=== PATIENT | female | born 1970 | race Caucasian/White ===

== ENCOUNTER 2016-06-28 16:33 | Emergency (ER) | payer MEDICAID, MEDICARE ==
[2016-06-28 16:39] VITALS: BP 152/79; PULSE 80; TEMP 98.2; BMI 35.5
[2016-06-28] MEDS ORDERED: OXYCODONE HCL 5 MG TABLET PO ONE (16:44)
[2016-06-28] MEDS ORDERED: PREDNISONE 20 MG TAB PO ONE (16:44)
[2016-06-28] MEDS ORDERED: DIAZEPAM 5 MG TAB PO ONE (16:44)
--- NOTE | 2016-06-28 16:46 | EDPRACDOC ---
- General Information Chief Complaint: Back Pain Stated Complaint: BACK & HIP PAIN NO RECENT INJURY Time Seen by Provider: 06/28/16 16:38 Information Source: Patient Mode Of Arrival: Car Home Medications: Home Medications Albuterol Sulfate [Proair Hfa] 2 puff INH BID PRN 04/20/12 Atenolol [Tenormin] 50 mg PO DAILY 04/20/12 Escitalopram Oxalate [Lexapro] 20 mg PO DAILY 04/20/12 Insulin Novolog 70/30 MIX [NOVOLOG 70-30 Mix] 15 units SQ .SLIDING SCALE PRN 07/26 Amitriptyline HCl [Elavil] 75 mg PO HS 02/16/13 Fluticasone/Salmeterol [Advair Hfa 45-21 Mcg Inhaler] 2 puff INH DAILY PRN 02/16 TOPIRAMATE (Anticonvulsant) [Topamax] 100 mg PO HS 02/16/13 Estradiol [Estrace] 1 mg PO DAILY 09/20/13 Lorazepam [Ativan] 1 mg PO BID 09/20/13 MetFORMIN (Immediate Release) [Glucophage Immediate Release] 1,000 mg PO BID(KEVIN ) 09/20/13 Omeprazole [Prilosec] 20 mg PO BID 09/20/13 Progesterone,Micronized [Progesterone] 200 mg PO DAILY 09/20/13 Ramipril [Altace] 1.25 mg PO DAILY 09/20/13 Ondansetron HCl [Zofran] 4 mg PO Q6H PRN #20 tab 12/17/13 Guaifenesin [Mucinex] 600 mg PO BID #30 tablet.sa 03/07/14 Prednisone [Deltasone, Orasone] 20 mg PO BID #14 tab 03/07/14 Diazepam [Valium] 5 mg PO TID #15 tablet 06/28/16 Oxycodone Immediate Release [Oxycodone Immediate Release (OxyIR)] 5 mg PO Q6H PRN #20 tab 06/28/16 Prednisone [Deltasone, Orasone] 20 mg PO BID #12 tab 06/28/16 Allergies/Adverse Reactions: Allergies Allergy/AdvReac Type Severity Reaction Status Date / Time cephalexin monohydrate Allergy Mild RASH Verified 03/06/14 22:31 [From Keflex] hydrocodone bitartrate Allergy Mild RASH/SHOB Verified 03/06/14 22:31 [From Vicodin] ketorolac tromethamine Allergy Mild CRAMPS Verified 03/06/14 22:31 [From Toradol] rizatriptan benzoate Allergy Anaphylaxis Verified 03/06/14 22:31 [From Maxalt] * sumatriptan [From Imitrex] Allergy See Verified 03/06/14 22:31 Comments sumatriptan succinate Allergy See Verified 03/06/14 22:31 [From Imitrex] Comments - History of Present Illness Onset: LAST WEEK HPI: PT PRESENTS STATING SHE HAS CHRONIC BACK PAIN THAT FLAIRS AT TIMES. STATES SHE SLIPPED IN THE MUD LAST WEEK AND HER LEFT LOWER LUMBAR BEGAN HURTING AGAIN WITH PAIN RADIATING DOWN INTO HER BUTTOCK AND THIGH. DENIES LOSS OF BOWEL OR BLADDER. Pain Location: Reports: Left, Lumbar Pain Radiates To: Reports: Thigh, Buttock Pain Caused By: Reports: Fall Circumstances: Reports: Fall Relevant History: Reports: Chronic back pain Currently ?: No Pain Severity: Reports: Moderate Pain Quality: Reports: Sharp, Stabbing Worsened By: Reports: Movement, Twisting, Walking Associated Signs and Symptoms: Reports: None ED Past Medical History - History Reviewed Yes Nurses notes reviewed and agree except as marked - Patient Medical History Neurological History: Reports: Cerebrovascular Accident, Seizures (2007) Cardiac History: Reports: Hypertension, Cardiac Catheterization (X3; ALL NEGATIVE), Hypercholesterolemia, Syncope (WHEN SHE GETS VERY HOT) Respiratory History: Reports: Asthma, COPD GI/ History: Reports: Gastroesophageal Reflux Psychological History: Reports: Depression, Anxiety, Bipolar Disorder Systemic History: Reports: Cancer (OVARIAN), Anemia, Diabetes Surgical History: Reports: Hysterectomy, Cardiac Catheterization (X3; ALL NEGATIVE), Tonsillectomy/Adnoidectomy, Other (MULT ORTHO) - Family Medical History Reports: Hypertension (PARENTS), Diabetes (PARENTS), Cardiac Disorders (FATHER) . Denies: Cancer, Stroke EDM Review of Systems - Review of Systems ROS Negative Except as Marked: Yes All systems reviewed and were negative except as marked - Physical Exam Constitutional: Alert Oriented to: Time, Person, Place Last recorded Vital Signs: Last Vital Signs Temp 98.2 F 06/28/16 16:37 Pulse 80 06/28/16 16:37 Resp 18 06/28/16 16:37 BP 152/79 06/28/16 16:37 Pulse Ox 97 06/28/16 16:37 Oxygen Pulse Oxygen Saturation 97 O2 Device Oxygen Flow Rate Fraction of Inspired Oxygen ( FIO2) - HEENT Head: Normal ( normocephalic) Eye Exam: Normal (PERRL, EOMI, Sclera white) Oropharynx: Normal (Pharynx:Moist without exudate,Gums-no swelling) Nose: No Symptoms Reported (septum midline) Neck: Normal (FROM, trachea at midline) - Respiratory/Cardiovascular Respiratory: Normal - CTA (BBS clear to auscultation without adventitious sounds ) Cardiovascular: Normal (RRR without murmur, gallop or rub) - GI Auscultation: Normal (NABS) Palpation: Normal (Soft,No rebound or guarding, non distended) Tenderness: Non tender Guerra's Sign: Negative Rectal Exam: Deferred - Musculoskeletal Back: Normal (Non-Tender) Extremities: Normal (Normal tone, Pulses 2+ No cyanosis or edema, FROM) - Integumentary Skin: Normal, Warm, Dry Lymphatics: Normal (no adenopathy) - Neurologic Memory Impaired: Normal Motor Function: Normal (Normal tone, Pulses 2+ No cyanosis or edema, FROM) Cranial Nerve: Normal (CN II-X11 intact sensation, strength 5/5) Cerebellar: Normal Mood Description: Normal Perception: Normal ED Back Exam - Neurologic Motor Deficit: None Reflexes: Normal - Musculoskeletal Cervical: Normal Thoracic: Normal Lumbar: Normal Midline: Normal Paraspinous: Tender Straight Leg Raise: Negative Pelvis: Normal - Differential Diagnosis Musculoskeletal pain Decision Time to Discharge: 16:46 - Departure Disposition: Home Condition: Stable Final Diagnosis: Accidental fall Sciatica Qualifiers: Laterality: left Qualified Code(s): M54.32 - Sciatica, left side Instructions: Back Exercises (ED), Sciatica (ED), Fall Prevention (ED) Education/Counseling Given To: Patient Education/Counseling Given Regarding: Diagnosis, Treatment, Prognosis, Follow Up Referrals: Balbir Franco MD [Staff Physician] - One Week Prescriptions: Diazepam [Valium] 5 mg PO TID #15 tablet Oxycodone Immediate Release [Oxycodone Immediate Release (OxyIR)] 5 mg PO Q6H PRN #20 tab PRN Reason: Pain Prednisone [Deltasone, Orasone] 20 mg PO BID #12 tab Additional Instructions: [id number] Return to the Emergency Department immediately for any numbness in your perineal area or genitalia, any bowel or bladder incontinence or retention (not related to constipation).
== END 2016-06-28 16:58 | disposition home or self-care (01) ==
LOC: EDMC 16:33
DX: M54.32 Sciatica, left side (principal)
CPT/HCPCS: 99283; A9270; J3490

== ENCOUNTER 2016-07-07 20:09 | Emergency (ER) | payer MEDICARE ==
[2016-07-07 20:10] VITALS: BMI 38.3
[2016-07-07 20:18] VITALS: TEMP 97.9
[2016-07-07 20:35] LABS: AUTOMATED BASOPHIL 0.6 % (0-2); AUTOMATED EOSINOPHIL 2.3 % (0-5); AUTOMATED LYMPH 32.9 % (17-44); AUTOMATED MONOCYTE 4.5 % (3-10); AUTOMATED NEUTROPHIL 59.7 % (45-76); MPV 11.8 fL (7.4-10.4)
[2016-07-07 20:42] LABS: LEUKOCYTES/URINE NEG (NEGATIVE); NITRITE/URINE NEG (NEGATIVE); RBC/URINE 0-2 (0-5); URINE OCCULT BLOOD NEG (NEG/TRACE); WBC/URINE 0-2 (0-5)
[2016-07-07 20:46] LABS: BLOOD UREA NITROGEN 8 MG/DL (7-17); CALCIUM 9.3 MG/DL (8.4-10.2); CALCULATED OSMOLALITY 274 MOs/Kg (270-290); CHLORIDE 109 mEq/L (98-107); GLUCOSE 121 MG/DL (70-99); SODIUM LEVEL 143 mEq/L (137-146); TOTAL PROTEIN 7.8 G/DL (6.3-8.2)
[2016-07-07] MEDS ORDERED: ONDANSETRON HCL 4 MG/2 ML VIAL IV ONE (20:50)
[2016-07-07] MEDS ORDERED: SODIUM CHLORIDE 0.9% 3 ML FLUSH FLUSH PRN (20:50)
[2016-07-07] MEDS ORDERED: NS 1,000 ML IV ONE ×2 (20:50)
--- NOTE | 2016-07-07 21:10 | EDPRACDOC ---
- General Information Chief Complaint: Nausea,Vomiting,Diarrhea Stated Complaint: PALIPATATIONS WITH HEADACHE Time Seen by Provider: 07/07/16 20:49 Information Source: Patient Mode Of Arrival: Car Home Medications: Home Medications Escitalopram Oxalate [Lexapro] 20 mg PO DAILY 04/20/12 TOPIRAMATE (Anticonvulsant) [Topamax] 100 mg PO BID 02/16/13 Estradiol [Estrace] 1 mg PO DAILY 09/20/13 MetFORMIN (Immediate Release) [Glucophage Immediate Release] 1,000 mg PO BID(KEVIN ) 09/20/13 Omeprazole [Prilosec] 20 mg PO BID 09/20/13 Dicyclomine HCl [Bentyl] 20 mg PO Q6H #30 tablet 07/07/16 Gabapentin 600 mg PO BID 07/07/16 Levothyroxine Sodium [Levothroid] 75 mcg PO DAILY 07/07/16 Metoprolol Succinate (XL) [Toprol Xl] 12.5 mg PO DAILY 07/07/16 Metronidazole [Flagyl] 500 mg PO TID #30 tab 07/07/16 Ondansetron [Zofran Odt] 4 mg PO Q6H #20 tab.rapdis 07/07/16 Oxycodone Immediate Release [Oxycodone Immediate Release (OxyIR)] 5 mg PO Q6H PRN #14 tab 07/07/16 Tramadol HCl [Ultram] 50 mg PO Q6H PRN 07/07/16 Allergies/Adverse Reactions: Allergies Allergy/AdvReac Type Severity Reaction Status Date / Time cephalexin monohydrate Allergy Mild RASH Verified 06/28/16 16:46 [From Keflex] hydrocodone bitartrate Allergy Mild RASH/SHOB Verified 06/28/16 16:46 [From Vicodin] ketorolac tromethamine Allergy Mild CRAMPS Verified 06/28/16 16:46 [From Toradol] rizatriptan benzoate Allergy Anaphylaxis Verified 06/28/16 16:46 [From Maxalt] * sumatriptan [From Imitrex] Allergy See Verified 06/28/16 16:46 Comments sumatriptan succinate Allergy See Verified 06/28/16 16:46 [From Imitrex] Comments - History of Present Illness Onset: one month HPI: PT PRESENTS TO ED WITH 3 WKS OF PREDOMINANTLY DIARRHEA WITH FEW EPISODES OF VOMITING STATES HAVING INTERMITTENT ABD CRAMPING WITH EPISODES OF DIARRHEA AND VOMITING. PT STATES HAS HAD CDIFF X 2 IN THE PAST AND FEELS SIMILAR TO BEGINNING OF THE SAME. Symptoms Occured: Reports: Spontaneous Duration: Reports: Since Onset Emesis: Reports: Bilious Recent: Reports: None Pain Quality: Reports: Cramping (INTERMITTENT) Pain Severity: Moderate (CRAMPING) Pain Location: Reports: Diffuse : No Associated Signs & Symptoms: Reports: Nausea, Vomiting, Diarrhea (PREDOMINANTLY DIARRHEA) Oral Intake: Normal Urinary Output: Normal ED Past Medical History - History Reviewed Yes Nurses notes reviewed and agree except as marked Travel Outside of [place] in the Last 3 Months?: No - Patient Medical History Neurological History: Reports: Cerebrovascular Accident, Seizures (2007) Cardiac History: Reports: Hypertension, Cardiac Catheterization (X3; ALL NEGATIVE), Hypercholesterolemia, Syncope (WHEN SHE GETS VERY HOT) Respiratory History: Reports: Asthma, COPD GI/ History: Reports: Gastroesophageal Reflux Psychological History: Reports: Depression, Anxiety, Bipolar Disorder Systemic History: Reports: Cancer (OVARIAN), Anemia, Diabetes Additional Past Medical History: CDIFF X 2 Surgical History: Reports: Cholecystectomy, Cardiac Catheterization (X3; ALL NEGATIVE), Tonsillectomy/Adnoidectomy, Other (MULT ORTHO). Denies: Hysterectomy - Family Medical History Reports: Hypertension (PARENTS), Diabetes (PARENTS), Cardiac Disorders (FATHER) . Denies: Cancer, Stroke - Social Medical History Smoking Status: Heavy tobacco smoker (5 or more cigarettes/day or daily pipe/ cigar) ETOH: None Substance Abuse: None Lives With: Spouse Lives In: Home EDM Review of Systems - Review of Systems ROS Negative Except as Marked: Yes All systems reviewed and were negative except as marked Constitutional: No Symptoms Reported. negative: Fever, Chills, Weakness, Fatigue, Loss of Appetite Eyes: No Symptoms Reported. negative: Redness, Blurred Vision, Double Vision, Discharge, Pain, Light Sensitive, Photophobia Ears: No Symptoms Reported. negative: Pain, Hearing Loss, Drainage, Ear Pulling Throat: No Symptoms Reported. negative: Pain, Swelling Nose: No Symptoms Reported. negative: Congestion, Bleeding, Discharge, Injection, Swelling, Deformity, Ecchymosis, Tender, Abrasion, Laceration Mouth: No Symptoms Reported. negative: Pain, Drooling Respiratory: No Symptoms Reported. negative: Cough, Brassy Cough, Barky Cough, Shortness of Breath, Wheezing, Hemoptysis Cardiovascular: No Symptoms Reported. negative: Chest Pain, Palpitations, Syncope, Edema, Orthopnea, PND, Skin Mottling, Cyanosis Gastrointestinal: Diarrhea, Nausea, Pain (INTERMITTENT CRAMPING), Vomiting. negative: Constipation, Formula Intolerance, Melena Genitourinary: No Symptoms Reported. negative: Dysuria, Hematuria, Frequency, Discharge, Bleeding, Testicular Pain, Neurological: No Symptoms Reported. negative: Headache, Dizziness, Seizure, Numbness, Weakness, Speech Difficulty, Gait Difficulty Musculoskeletal: No Symptoms Reported. negative: Neck, Chestwall, Ribs, Back, Shoulder, Arm, Elbow, Forearm, Wrist, Hand, Pelvis, Hip, Femur, Knee, Leg, Ankle , Foot Integumentary: No Symptoms Reported. negative: Itching, Rash, Bruising, Wound Allergic/Immunologic: No Symptoms Reported. negative: Hives, Itching Hematologic: No Symptoms Reported. negative: Lymphadenopathy, Easy Bruising, Easy Bleeding Endocrine: No Symptoms Reported. negative: Weight Gain, Weight Loss Psychiatric: No Symptoms Reported. negative: Anxiety, Depression, Hallucinations, Insomnia, Suicidal - Physical Exam Constitutional: No apparent distress, Alert (Awake) Oriented to: Time, Person, Place Last recorded Vital Signs: Last Vital Signs Temp 97.9 F 07/07/16 20:13 Pulse 77 07/07/16 20:51 Resp 18 07/07/16 20:51 BP 128/81 07/07/16 20:51 Pulse Ox 96 07/07/16 20:51 Oxygen Pulse Oxygen Saturation 96 O2 Device Room Air Oxygen Flow Rate Fraction of Inspired Oxygen ( FIO2) - HEENT Head: Normal ( normocephalic) Eye Exam: Normal (PERRL, EOMI, Sclera white) Oropharynx: Normal (Pharynx:Moist without exudate,Gums-no swelling) Tympanic Membrane: Normal ENT EAC: Normal TMJ: Normal Nose: No Symptoms Reported (septum midline) Neck: Normal (FROM, trachea at midline) - Respiratory/Cardiovascular Respiratory: Normal - CTA (BBS clear to auscultation without adventitious sounds ) Cardiovascular: Normal (RRR without murmur, gallop or rub) - GI Auscultation: Normal (NABS) Palpation: Normal (Soft,No rebound or guarding, non distended) Tenderness: Non tender Guerra's Sign: Negative - Musculoskeletal Back: Normal (Non-Tender) Extremities: Normal (Normal tone, Pulses 2+ No cyanosis or edema, FROM) - Integumentary Skin: Normal, Warm, Dry Lymphatics: Normal (no adenopathy) - Neurologic Memory Impaired: Normal Motor Function: Normal (Normal tone, Pulses 2+ No cyanosis or edema, FROM) Cranial Nerve: Normal (CN II-X11 intact sensation, strength 5/5) Cerebellar: Normal Mood Description: Normal Perception: Normal - Differential Diagnosis Dehydration, Diarrhea Viral, Food poisoning, Gastritis, Gastroenteritis, Other ( COLITIS, CDIFF) - Re-evaluation Re-evaluation 1 Re-evaluation Time: 22:49 (PT STATES "I FEEL LIKE AN ASS B/C I WAS COMPLAINING OF DIARRHEA AND NOW I CANT PRODUCE SPECIMEN AND I THINK I WANT TO JUST GO HOME AND FOLLOW UP [facility] PCP. ) - Results 07/07/16 20:23 07/07/16 20: WBC 8.2 xk/uL (3.8-10.8) 07/07/16 20: RBC 5.00 xM/uL (4.20-5.40) 07/07/16 20:23 Hgb 14.7 g/dL (12.0-16.0) 07/07/16 20:23 Hct 44.1 % (36-47) 07/07/16 20: MCV 88 fL (81-99) 07/07/16 20:23 MCH 29.3 pg (27-32) 07/07/16 20: MCHC 33.3 g/dl (33-36) 07/07/16 20: RDW 13.7 % (11.5-14.5) 07/07/16 20:23 Plt Count 81 xk/uL (130-400) L 07/07/16 20: MPV 11.8 fL (7.4-10.4) H 07/07/16 20: Neut % (Auto) 59.7 % (45-76) 07/07/16 20:23 Lymph % (Auto) 32.9 % (17-44) 07/07/16 20: [place] % (Auto) 4.5 % (3-10) 07/07/16 20: Eos % (Auto) 2.3 % (0-5) 07/07/16 20:23 Baso % (Auto) 0.6 % (0-2) 07/07/16 20:23 Absolute Neuts (auto) 4.84 xk/uL (1.7-8.2) 07/07/16 20:23 Absolute Lymphs (auto) 2.62 xk/uL (0.65-4.75) 07/07/16 20:23 Sodium 143 mEq/L (137-146) 07/07/16 20:23 Potassium 3.6 mEq/L (3.5-5.1) 07/07/16 20:23 Chloride 109 mEq/L (98-107) H 07/07/16 20:23 Carbon Dioxide 20 mMOL/L (22-33) L 07/07/16 20: Anion Gap 18 mEq/L (8-16) H 07/07/16 20:23 BUN 8 MG/DL (7-17) 07/07/16 20: Creatinine 0.70 MG/DL (0.52-1.04) 07/07/16 20:23 Estimated GFR (MDRD) > 60 mL/min (>=60) 07/07/16 20:23 Glucose 121 MG/DL (70-99) H 07/07/16 20:23 Calculated Osmolality 274 MOs/Kg (270-290) 07/07/16 20: Calcium 9.3 MG/DL (8.4-10.2) 07/07/16 20:23 Total Bilirubin 0.4 MG/DL (0.2-1.3) 07/07/16 20: AST 19 IU/L (14-36) 07/07/16 20:23 ALT 25 IU/L (9-52) 07/07/16 20:23 Alkaline Phosphatase 85 IU/L (38-126) 07/07/16 20:23 Total Protein 7.8 G/DL (6.3-8.2) 07/07/16 20:23 Albumin 4.4 G/DL (3.5-5.0) 07/07/16 20:23 Lipase 253 U/L (23-300) 07/07/16 20:23 Urine Color Pale yellow 07/07/16 20:23 Urine Clarity Clear 07/07/16 20:23 Urine pH 6.0 (5.0-8.0) 07/07/16 20:23 Ur Specific [place] 1.005 (1.003-1.035) 07/07/16 20:23 Urine Protein Neg (NEG/TRACE) 07/07/16 20:23 Urine Glucose (UA) Neg (NEGATIVE) 07/07/16 20:23 Urine Ketones Neg (NEGATIVE) 07/07/16 20:23 Urine Occult Blood Neg (NEG/TRACE) 07/07/16 20:23 Urine Nitrite Neg (NEGATIVE) 07/07/16 20:23 Urine Bilirubin Neg (NEGATIVE) 07/07/16 20:23 Urine Urobilinogen <2.0 MG/DL (0-1) 07/07/16 20:23 Ur Leukocyte Esterase Neg (NEGATIVE) 07/07/16 20:23 Urine RBC 0-2 (0-5) 07/07/16 20:23 Urine WBC 0-2 (0-5) 07/07/16 20:23 Ur Epithelial Cells 2+ 07/07/16 20:23 Urine Bacteria 2+ (NEG/FEW) H 07/07/16 20:23 Urine Mucus Occ (NEG/OCC) 07/07/16 20:23 Lab Results 07/07/16 07/07/16 07/07/16 20:23 20:23 20:23 WBC 8.2 RBC 5.00 Hgb 14.7 Hct 44.1 MCV 88 MCH 29.3 MCHC 33.3 RDW 13.7 Plt Count 81 L MPV 11.8 H Neut % (Auto) 59.7 Lymph % (Auto) 32.9 [place] % (Auto) 4.5 Eos % (Auto) 2.3 Baso % (Auto) 0.6 Absolute Neuts (auto) 4.84 Absolute Lymphs (auto) 2.62 Sodium 143 Potassium 3.6 Chloride 109 H Carbon Dioxide 20 L Anion Gap 18 H BUN 8 Creatinine 0.70 Estimated GFR (MDRD) > 60 Glucose 121 H Calculated Osmolality 274 Calcium 9.3 Total Bilirubin 0.4 AST 19 ALT 25 Alkaline Phosphatase 85 Total Protein 7.8 Albumin 4.4 Lipase 253 Urine Color Pale yellow Urine Clarity Clear Urine pH 6.0 Ur Specific [place] 1.005 Urine Protein Neg Urine Glucose (UA) Neg Urine Ketones Neg Urine Occult Blood Neg Urine Nitrite Neg Urine Bilirubin Neg Urine Urobilinogen <2.0 Ur Leukocyte Esterase Neg Urine RBC 0-2 Urine WBC 0-2 Ur Epithelial Cells 2+ Urine Bacteria 2+ H Urine Mucus Occ - Additional Information I WILL TREAT HER EMPIRICALLY FOR CDIFF WITH FLAGYL AND HAVE HER FOLLOW UP WITH PMD FOR FURTHER EVALUATION. Decision Time to Discharge: 22:50 - Departure Disposition: Home Condition: Stable Final Diagnosis: Diarrhea Qualifiers: Diarrhea type: presumed infectious Qualified Code(s): A09 - Infectious gastroenteritis and colitis, unspecified Instructions: Acute Diarrhea (ED) Education/Counseling Given To: Patient Education/Counseling Given Regarding: Diagnosis, Treatment, Prognosis, Follow Up Referrals: None,No Provider [Primary Care Provider] - One Week Angélica De La Rosa NP [Ambulatory] - One Week Prescriptions: Dicyclomine HCl [Bentyl] 20 mg PO Q6H #30 tablet Metronidazole [Flagyl] 500 mg PO TID #30 tab Ondansetron [Zofran Odt] 4 mg PO Q6H #20 tab.rapdis Oxycodone Immediate Release [Oxycodone Immediate Release (OxyIR)] 5 mg PO Q6H PRN #14 tab PRN Reason: Pain Additional Instructions: RETURN FOR WORSE OR DIFFERENT SYMPTOMS.
[2016-07-07 23:08] VITALS: BP 145/85; PULSE 72
[2016-07-08] MEDS ORDERED: SODIUM CHLORIDE 0.9% 3 ML FLUSH FLUSH SCH (06:00)
== END 2016-07-07 23:07 | disposition home or self-care (01) ==
LOC: ED 20:09
DX: A09 Infectious gastroenteritis and colitis, unspecified (principal)
CPT/HCPCS: 36415; 80053; 81001; 83690; 85025; 93005; 96361; 96374; 99283; J2405

== ENCOUNTER 2016-07-10 23:51 | Emergency (ER) | payer MEDICARE ==
[2016-07-10 23:52] VITALS: BMI 38.3
[2016-07-11] VITALS: BP 120/65; PULSE 78; TEMP 98.1
--- NOTE | 2016-07-11 00:10 | EDPRACDOC ---
ED Hip Problem HPI - General Information Chief Complaint: Hip Pain Stated Complaint: HIP PAIN Time Seen by Provider: 07/11/16 00:03 Mode of Arrival: Car Home Medications: Home Medications Escitalopram Oxalate [Lexapro] 20 mg PO DAILY 04/20/12 TOPIRAMATE (Anticonvulsant) [Topamax] 100 mg PO BID 02/16/13 Estradiol [Estrace] 1 mg PO DAILY 09/20/13 MetFORMIN (Immediate Release) [Glucophage Immediate Release] 1,000 mg PO BID(KEVIN ) 09/20/13 Omeprazole [Prilosec] 20 mg PO BID 09/20/13 Dicyclomine HCl [Bentyl] 20 mg PO Q6H #30 tablet 07/07/16 Gabapentin 600 mg PO BID 07/07/16 Levothyroxine Sodium [Levothroid] 75 mcg PO DAILY 07/07/16 Metoprolol Succinate (XL) [Toprol Xl] 12.5 mg PO DAILY 07/07/16 Metronidazole [Flagyl] 500 mg PO TID #30 tab 07/07/16 Ondansetron [Zofran Odt] 4 mg PO Q6H #20 tab.rapdis 07/07/16 Oxycodone Immediate Release [Oxycodone Immediate Release (OxyIR)] 5 mg PO Q6H PRN #14 tab 07/07/16 Tramadol HCl [Ultram] 50 mg PO Q6H PRN 07/07/16 Cyclobenzaprine HCl [Flexeril] 10 mg PO TID PRN #20 tablet 07/11/16 Prednisone [Deltasone, Orasone] 40 mg PO DAILY 5 Days 07/11/16 Allergies/Adverse Reactions: Allergies Allergy/AdvReac Type Severity Reaction Status Date / Time cephalexin monohydrate Allergy Mild RASH Verified 06/28/16 16:46 [From Keflex] hydrocodone bitartrate Allergy Mild RASH/SHOB Verified 06/28/16 16:46 [From Vicodin] ketorolac tromethamine Allergy Mild CRAMPS Verified 06/28/16 16:46 [From Toradol] rizatriptan benzoate Allergy Anaphylaxis Verified 06/28/16 16:46 [From Maxalt] * sumatriptan [From Imitrex] Allergy See Verified 06/28/16 16:46 Comments sumatriptan succinate Allergy See Verified 06/28/16 16:46 [From Imitrex] Comments - History of Present Illness Onset: 2 months HPI: PT STATES THAT SHE HAS "SCIATICA" THAT HAS BEEN WORSENING FOR THE LAST SEVERAL WEEKS, SEEN IN ED A COUPLE OF WEEKS AGO FOR SAME, WAS GIVEN OXYCODONE, STATES THAT SHE DID NOT GET THAT FILLED BECAUSE SHE COULD NOT AFFORD IT. STATES THAT HER LEFT HIP "POPPED" TWICE TODAY NOW HER PAIN IS MUCH WORSE AND SHE FEELS "WOOZY", STATES THAT HER LEFT LEG FEELS NUMB. Hip Problem Location: Reports: Left, Lateral, Anterior Mechanism: Reports: No Trauma Circumstances: Reports: Other (SCIATICA) Tetanus Up To Date?: Yes Able to Bear Weight: Fully Pain Severity: Severe Associated Signs & Symptoms: Denies: Fever, Abrasion, Laceration, Thigh Pain, Knee Pain, Back Pain ED Past Medical History - History Reviewed Yes Nurses notes reviewed and agree except as marked - Patient Medical History Neurological History: Reports: Cerebrovascular Accident, Seizures (2007) Cardiac History: Reports: Hypertension, Cardiac Catheterization (X3; ALL NEGATIVE), Hypercholesterolemia, Syncope (WHEN SHE GETS VERY HOT) Respiratory History: Reports: Asthma, COPD GI/ History: Reports: Gastroesophageal Reflux Psychological History: Reports: Depression, Anxiety, Bipolar Disorder Systemic History: Reports: Cancer (OVARIAN), Anemia, Diabetes Additional Past Medical History: CDIFF X 2 Surgical History: Reports: Cholecystectomy, Hysterectomy, Cardiac Catheterization (X3; ALL NEGATIVE), Tonsillectomy/Adnoidectomy, Other (MULT ORTHO) - Family Medical History Reports: Hypertension (PARENTS), Diabetes (PARENTS), Cardiac Disorders (FATHER) . Denies: Cancer, Stroke - Social Medical History Smoking Status: Heavy tobacco smoker (5 or more cigarettes/day or daily pipe/ cigar) ETOH: None Substance Abuse: None EDM Review of Systems - Review of Systems Constitutional: negative: Chills, Fever Gastrointestinal: negative: Nausea, Vomiting Genitourinary: negative: Dysuria, Frequency Neurological: Numbness. negative: Dizziness, Headache, Weakness Musculoskeletal: Back, Hip Integumentary: No Symptoms Reported - Physical Exam Constitutional: Alert (Awake), No apparent distress Oriented to: Time, Person, Place Last recorded Vital Signs: Last Vital Signs Temp 98.1 F 07/10/16 23:57 Pulse 78 07/10/16 23:57 Resp 20 07/10/16 23:57 BP 120/65 07/10/16 23:57 Pulse Ox 98 07/10/16 23:57 Oxygen Pulse Oxygen Saturation 98 O2 Device Room Air Oxygen Flow Rate Fraction of Inspired Oxygen ( FIO2) - HEENT Head: Normal ( normocephalic) - Musculoskeletal Back: Lumbar TTP. negative: Thoracic Step-off, Lumbar Step-off, Thoracic TTP Extremities: Normal - Integumentary Skin: Normal, Warm, Dry Lymphatics: Normal (no adenopathy) - Neurologic Memory Impaired: Normal Motor Function: Normal (Normal tone, Pulses 2+ No cyanosis or edema, FROM) Cranial Nerve: Normal (CN II-X11 intact sensation, strength 5/5) Cerebellar: Normal Mood Description: Normal Perception: Normal ED Hip Problem Physical Exam - Musculoskeletal Hip: Moderate tenderness. negative: Swelling, Limited ROM, Deformity Hip Deformity: Normal Pelvis: Normal Thigh: Normal Back: Moderate Tenderness Distal Function/Circulation: Normal, Capillary Refill. negative: Motor Deficit , Pulse Deficit, Sensory Deficit - Differential Diagnosis Avascular necrosis, DJD arthritis, Bursitis - Diagnostic Imaging LEFT HIP Image interpreted by: Radiologist LEFT HIP (WITH PELVIS) 2-3 VIEWS COMPARISON: Sacrum and coccyx 08/14/2013 FINDINGS: Pelvis appears intact. SI joints and symphysis pubis are not displaced. Left hip demonstrates degenerative changes with mild osteophyte formation on the acetabulum. No evidence of acute fracture or dislocation. No focal bone lesion or bone destruction. Bone cortex appears intact. Soft tissues are unremarkable peer IMPRESSION: Mild degenerative changes in the left hip. No evidence of acute fracture or dislocation. Decision Time to Discharge: 01:03 - Departure Disposition: Home Condition: Stable Final Diagnosis: Acute back pain with sciatica Qualifiers: Laterality: left Qualified Code(s): M54.42 - Lumbago with sciatica, left side Instructions: Sciatica (ED) Education/Counseling Given To: Patient Education/Counseling Given Regarding: Diagnosis, Treatment, Prognosis, Follow Up Referrals: Angélica De La Rosa NP [Primary Care Provider] - One Week Prescriptions: New Cyclobenzaprine HCl [Flexeril] 10 mg PO TID PRN #20 tablet PRN Reason: Muscle Spasms Prednisone [Deltasone, Orasone] 40 mg PO DAILY 5 Days No Action Escitalopram Oxalate [Lexapro] 20 mg PO DAILY TOPIRAMATE (Anticonvulsant) [Topamax] 100 mg PO BID Estradiol [Estrace] 1 mg PO DAILY Omeprazole [Prilosec] 20 mg PO BID MetFORMIN (Immediate Release) [Glucophage Immediate Release] 1,000 mg PO BID( KEVIN) Levothyroxine Sodium [Levothroid] 75 mcg PO DAILY Metoprolol Succinate (XL) [Toprol Xl] 12.5 mg PO DAILY Gabapentin 600 mg PO BID Tramadol HCl [Ultram] 50 mg PO Q6H PRN PRN Reason: Headache Dicyclomine HCl [Bentyl] 20 mg PO Q6H #30 tablet Metronidazole [Flagyl] 500 mg PO TID #30 tab Ondansetron [Zofran Odt] 4 mg PO Q6H #20 tab.rapdis Oxycodone Immediate Release [Oxycodone Immediate Release (OxyIR)] 5 mg PO Q6H PRN #14 tab PRN Reason: Pain Additional Instructions: CONTINUE YOUR USUAL MEDICATIONS BEFORE, PLEASE GET YOUR OXYCODONE PRESCRIPTION FILLED AND USE DIRECTED FOR YOUR PAIN.
[2016-07-11] MEDS ORDERED: OXYCODONE HCL 5 MG TABLET PO ONE (00:11)
--- NOTE | 2016-07-11 00:59 | DIRPT ---
CLINICAL DATA: Patient was standing in her kitchen at her left hip popped twice. Extreme pain. No fall. Chronic back pain. EXAM: LEFT HIP (WITH PELVIS) 2-3 VIEWS COMPARISON: Sacrum and coccyx 08/14/2013 FINDINGS: Pelvis appears intact. SI joints and symphysis pubis are not displaced. Left hip demonstrates degenerative changes with mild osteophyte formation on the acetabulum. No evidence of acute fracture or dislocation. No focal bone lesion or bone destruction. Bone cortex appears intact. Soft tissues are unremarkable peer IMPRESSION: Mild degenerative changes in the left hip. No evidence of acute fracture or dislocation. Electronically Signed By: Aramis Johnson M.D. On: 07/11/2016 00:57
[2016-07-11] MEDS ORDERED: DIAZEPAM 5 MG TAB PO ONE (01:07)
[2016-07-11] MEDS ORDERED: PREDNISONE 10 MG TAB PO ONE (01:07)
== END 2016-07-11 01:15 | disposition home or self-care (01) ==
LOC: ED 23:51
DX: M54.42 Lumbago with sciatica, left side (principal)
CPT/HCPCS: 73502; 99282; A9270; J3490